=== PATIENT | male | born 1975 | race Caucasian/White ===

== ENCOUNTER 2022-07-20 16:23 | Outpatient (CLI) | payer OTHER | END 2022-07-20 23:59 | disposition short-term general hospital (02) | LOC: EMS 16:23 | DX: S61.237A Puncture wound without foreign body of left little finger without damage to nail, initial encounter (principal); R55 Syncope and collapse; I95.9 Hypotension, unspecified; W32.0XXA Accidental handgun discharge, initial encounter; Y93.89 Activity, other specified; Y92.009 Unspecified place in unspecified non-institutional (private) residence as the place of occurrence of the external cause | CPT/HCPCS: A0425; A0427 ==